=== PATIENT | male | born 1970 | race Caucasian/White ===

== ENCOUNTER → 2017-09-20 | Outpatient (CLI) | payer BC ==
[2017-09-20 08:13] LABS: CH 32.5; HCT 45.4 % (39.0-53.0); HGB 14.9 gm/dL (13.0-17.5); MCH 31.5 pg (25.0-35.0); MCHC 32.9 g/dL (31.0-37.0); MCV 95.9 fL (80.0-100.0); Mean Platelet Volume 6.8; RBC 4.73 m/uL (4.30-5.90); WBC 5.5 k/uL (3.8-10.6)
[2017-09-20 09:57] LABS: Anion Gap 11 mmol/L; Blood Urea Nitrogen 12 mg/dL (9-20); Calcium 10.3 mg/dL (8.4-10.2); Carbon Dioxide 31 mmol/L (22-30); Chloride 103 mmol/L (98-107); Cholesterol 194 mg/dL (<200); Glucose 89 mg/dL (74-99); HDL Cholesterol 58 mg/dL (40-60); Non-African American GFR(MDRD) >60 (>60 ml/min/1.73 sqM); Potassium 5.6 mmol/L (3.5-5.1); Sodium 145 mmol/L (137-145)
== END | disposition home or self-care (01) ==
LOC: LABWHC1 07:44
PROVIDERS: ATTEND Internal Medicine Interventional Cardiology
DX: E78.5 Hyperlipidemia, unspecified (principal)
CPT/HCPCS: 36415; 80048; 80061; 84153; 84443; 85027

== ENCOUNTER → 2017-11-07 | Outpatient (CLI) | payer BC | END | disposition home or self-care (01) | LOC: LABWHC1 12:01 | PROVIDERS: ATTEND Internal Medicine | DX: E87.5 Hyperkalemia (principal) | CPT/HCPCS: 36415; 84132 ==

== ENCOUNTER → 2020-07-27 | Outpatient (CLI) | payer BC ==
--- NOTE | 2020-07-27 09:00 | CT ---
EXAMINATION TYPE: CT sinus wo con DATE OF EXAM: 07/27/2020 COMPARISON: Facial bone CT July 01, 2013 HISTORY: Chronic sinusitis per order. Sinus issues with pain for 20+ years per patient. CT DLP: 694 mGycm. Automated Exposure Control for Dose Reduction was Utilized. TECHNIQUE: CT scan of the sinuses is performed without contrast, axial images are obtained, coronal r eformatted images are also reviewed. FINDINGS: Minimal mucosal thickening involving the maxillary sinuses bilaterally. Mild mucosal thicke evi involving the bilateral sphenoid sinuses. Mild to moderate mucosal thickening with patchy opaci fication involving the ethmoid sinuses bilaterally. Inferior frontal sinuses show some dependent muco philip thickening and patchy fluid. Findings more prominent from 2013 CT The ostiomeatal complex is brown nt bilaterally on coronal image 24. Interval surgery at this level though present from 2013. Visualized portion of mastoid air cells show no abnormal opacification. The globes are intact bilate rally. IMPRESSION: Acute on chronic paranasal sinus disease greatest involving ethmoid sinuses bilaterally.
== END | disposition home or self-care (01) ==
LOC: RADCTMAIN 07:51
PROVIDERS: ATTEND Otolaryngology
DX: J34.89 Other specified disorders of nose and nasal sinuses (principal); J32.9 Chronic sinusitis, unspecified; Z88.0 Allergy status to penicillin
CPT/HCPCS: 70486

== ENCOUNTER 2021-04-12 14:19 | Emergency (ER) | payer BC ==
[2021-04-12 14:25] VITALS: BP 158/108; PULSE 85; RESP 18; TEMP 97.9
--- NOTE | 2021-04-12 15:02 | XR ---
EXAMINATION TYPE: XR Hip Complete LT DATE OF EXAM: 04/12/2021 CLINICAL HISTORY: pain TECHNIQUE: AP and frogleg views of the left hip are obtained. COMPARISON: None. FINDINGS: There is no acute fracture/dislocation evident. The joint space appears within normal li mits. The overlying soft tissue appears unremarkable. IMPRESSION: 1. There is no acute fracture or dislocation.ICD 10 NO FRACTURE, INITIAL EVALUATION
--- NOTE | 2021-04-12 15:13 | ED ---
Extremity Problem HPI - General Chief complaint: Extremity Problem,Nontraumatic Stated complaint: hip pain Time Seen by Provider: 04/12/21 14:41 Source: patient Mode of arrival: ambulatory Limitations: no limitations - History of Present Illness Initial comments: Patient is a 50-year-old male presenting to emergency Department with complaints of increasing left hip pain over the past 2 weeks. He describes it as in the posterior aspect, deep and in the glute. He's been trying massage, chiropractor without improvement. He denies any recent falls or trauma. He states he did have a previous fracture in that hip about 30 years prior. He's had no fevers or chills. He denies any back pain, no lower leg pain, no belly pain. There are no further complaints. - Related Data Previous Rx's Medication Instructions Recorded predniSONE 50 mg PO DAILY #5 tab 04/12/21 Allergies Allergy/AdvReac Type Severity Reaction Status Date / Time Penicillins Allergy Unknown Verified 04/12/21 14:24 Childhood Review of Systems ROS Statement: Those systems with pertinent positive or pertinent negative responses have been documented in the HPI. ROS Other: All systems not noted in ROS Statement are negative. Past Medical History Past Medical History: No Reported History History of Any Multi-Drug Resistant Organisms: None Reported Past Surgical History: No Surgical Hx Reported Past Psychological History: No Psychological Hx Reported Smoking Status: Never smoker Past Alcohol Use History: None Reported Past Drug Use History: None Reported General Exam - General Exam Comments Initial Comments: GENERAL: Patient is well-developed and well-nourished. Patient is nontoxic and in no acute distress. HEAD: Atraumatic, normocephalic. EYES: Pupils equal round and reactive to light, extraocular movements intact, sclera anicteric, conjunctiva are normal. Eyelids were unremarkable. LUNGS: Unlabored respirations. Breath sounds clear to auscultation bilaterally and equal. No wheezes rales or rhonchi. HEART: Regular rate and rhythm without murmurs, rubs or gallops. ABDOMEN: Soft, nontender, normoactive bowel sounds. No guarding, no rebound. No masses appreciated. MUSCULOSKELETAL: She has mild pain to palpation of the left sciatic area. He has full normal active range of motion of left hip. No swelling of the lower leg, vascular intact. No clubbing or cyanosis. SKIN: Warm, Dry, normal turgor, no rashes or lesions noted. Limitations: no limitations Course Vital Signs 04/12/21 14:21 Temperature 97.9 F Pulse Rate 85 Respiratory 18 Rate Blood Pressure 158/108 O2 Sat by Pulse 98 Oximetry Medical Decision Making - Medical Decision Making Patient is a 50-year-old male here with left hip pain increasing over the past 2 weeks. Describes the posterior aspect. He gave her previous fracture about 30 years prior. X-rays today reveal no acute fracture dislocations. I discussed with patient this is most likely tightness in the piriformis muscle and/or sciatic nerve involvement. Trial of steroids, he will continue with heat, ibuprofen for discomfort. He also has a plan with orthopedics next week. He is in agreement with this plan of care and is stable for discharge. Case discussed with Dr. boone. Disposition Clinical Impression: Piriformis syndrome of left side Disposition: HOME SELF-CARE Condition: Stable Instructions (If sedation given, give patient instructions): Piriformis Syndrome (ED) Additional Instructions: Please return to the Emergency Department if symptoms worsen or any other concerns. Trial of oral steroids as discussed. Continue with heat, massage, stretching of the muscle. Follow up with orthopedics next week. Prescriptions: predniSONE 50 mg PO DAILY #5 tab Is patient prescribed a controlled substance at d/c from ED?: No Referrals: Demar Gabriel MD [Primary Care Provider] - 1-2 days Time of Disposition: 15:25
== END 2021-04-12 15:32 | disposition home or self-care (01) ==
LOC: EC 14:19
DX: G57.02 Lesion of sciatic nerve, left lower limb (principal); Z88.0 Allergy status to penicillin
CPT/HCPCS: 73502; 99283